=== PATIENT | female | born 1965 | race Caucasian/White ===

== ENCOUNTER 2017-11-07 12:34 | Observation (INO) | payer MEDICAID, OTHER ==
[2017-11-07 13:34] LABS: ABS Basophils 0 10^3/ul (0-0.2); ABS Eosinophils 0.2 10^3/ul (0-0.6); ABS Lymphocytes 1.7 10^3/ul (1.0-4.8); ABS Monocytes 0.5 10^3/ul (0-0.8); ABS Neutrophils 2.9 10^3/ul (1.5-7.7); ABS Nucleated RBC 0 10^3/ul; Eosinophil % 3.5 % (0-6); Hematocrit 47 % (35-47); Hemoglobin 15.7 g/dl (12.0-16.0); Lymphocyte % 31.7 % (25-47); Mean Corpuscular HGB Conc 33 g/dl (31-36); Mean Corpuscular Hemoglobin 29 pg (27-31); Mean Corpuscular Volume 88 fL (80-97); Mean Platelet Volume 9 um3 (7.4-10.4); Nucleated Red Blood Cells % 0; Platelet Count 202 10^3/ul (150-450); Red Blood Count 5.39 10^6/ul (4.0-5.4); Red Cell Distribution Width 21 % (10.5-15); White Blood Count 5.3 10^3/ul (3.5-10.8)
[2017-11-07 13:58] LABS: EGFR Non-African American 86.1 (>60)
--- NOTE | 2017-11-07 14:07 | ED ---
Allergic Reaction/Systemic - HPI Summary HPI Summary: Patient presents to the ED with CC of ingestion of 15 ground marina pits about 1 hour prior to arrival. She was unaware the cherries had pits and after looking online, she became scared and states she thought she would have to get her stomach pumped. She denies any symptoms. She is otherwise healthy, takes no medications and denies any heart history. Family is at bedside. Denies fevers , sweats or chills. - History of Current Complaint Chief Complaint: EDGeneral Time Seen by Provider: 11/07/17 13:14 Hx Obtained From: Patient Onset/Duration: Started hours ago Timing: Constant Severity Currently: None Pain Intensity: 0 Pain Scale Used: 0-10 Numeric - Related Hx Possible Reaction To: Environmental Exposure - Allergies/Home Medications Allergies/Adverse Reactions: Allergies Allergy/AdvReac Type Severity Reaction Status Date / Time No Known Allergies Allergy Verified 11/07/17 13:55 PMH/Surg Hx/FS Hx/Imm Hx Previously Healthy: Yes - Immunization History Hx Pertussis Vaccination: No Immunizations Up to Date: Unable to Obtain/Confirm Infectious Disease History: No Infectious Disease History: Denies: Traveled Outside the [place] in Last 30 Days - Social History Occupation: Employed Full-time Lives: With Family Alcohol Use: Daily Alcohol Amount: couple bottles of wine per week Hx Substance Use: No Substance Use Type: Reports: None Hx Tobacco Use: Yes Smoking Status (MU): Former Smoker Review of Systems Constitutional: Negative Negative: Fever, Chills, Fatigue Eyes: Negative Cardiovascular: Negative Respiratory: Negative Genitourinary: Negative Positive: no symptoms reported, see HPI Musculoskeletal: Negative Skin: Negative Neurological: Negative All Other Systems Reviewed And Are Negative: Yes Physical Exam Triage Information Reviewed: Yes Vital Signs On Initial Exam: Initial Vitals Temp Pulse Resp BP Pulse Ox 97.7 F 85 18 201/120 100 11/07/17 12:36 11/07/17 12:36 11/07/17 12:36 11/07/17 12:36 11/07/17 12:36 Vital Signs Reviewed: Yes Appearance: Positive: Well-Appearing, Well-Nourished Skin: Positive: Warm, Skin Color Reflects Adequate Perfusion Head/Face: Positive: Normal Head/Face Inspection Eyes: Positive: EOMI, KRISTOFER, Conjunctiva Clear Neck: Positive: Supple, Nontender, No Lymphadenopathy Respiratory/Lung Sounds: Positive: Clear to Auscultation, Breath Sounds Present Musculoskeletal: Positive: Normal, Strength/ROM Intact Neurological: Positive: Speech Normal Psychiatric: Positive: Normal, Affect/Mood Appropriate AVPU Assessment: Alert Diagnostics - Vital Signs Vital Signs Temp Pulse Resp BP Pulse Ox 11/07/17 12:36 97.7 F 85 18 201/120 100 - Laboratory Lab Results: Lab Results 11/07/17 11/07/17 11/07/17 Range/Units 13:23 13:23 13:23 WBC 5.3 (3.5-10.8) 10^3/ul RBC 5.39 (4.0-5.4) 10^6/ul Hgb 15.7 (12.0-16.0) g/dl Hct 47 (35-47) % MCV 88 (80-97) fL MCH 29 (27-31) pg MCHC 33 (31-36) g/dl RDW 21 H (10.5-15) % Plt Count 202 (150-450) 10^3/ul MPV 9 (7.4-10.4) um3 Neut % (Auto) 55.0 (38-83) % Lymph % (Auto) 31.7 (25-47) % [place] % (Auto) 9.0 (1-9) % Eos % (Auto) 3.5 (0-6) % Baso % (Auto) 0.8 (0-2) % Absolute Neuts (auto) 2.9 (1.5-7.7) 10^3/ul Absolute Lymphs (auto) 1.7 (1.0-4.8) 10^3/ul Absolute Monos (auto) 0.5 (0-0.8) 10^3/ul Absolute Eos (auto) 0.2 (0-0.6) 10^3/ul Absolute Basos (auto) 0 (0-0.2) 10^3/ul Absolute Nucleated RBC 0 10^3/ul Nucleated RBC % 0 Sodium 138 (133-145) mmol/L Potassium 4.4 (3.5-5.0) mmol/L Chloride 105 (101-111) mmol/L Carbon Dioxide 26 (22-32) mmol/L Anion Gap 7 (2-11) mmol/L BUN 18 (6-24) mg/dL Creatinine 0.71 (0.51-0.95) mg/dL Est GFR ( Amer) 110.7 (>60) Est GFR (Non-Af Amer) 86.1 (>60) BUN/Creatinine Ratio 25.4 H (8-20) Glucose 128 H (70-100) mg/dL Lactic Acid 1.2 (0.5-2.0) mmol/L Calcium 9.2 (8.6-10.3) mg/dL Total Bilirubin 0.40 (0.2-1.0) mg/dL AST 18 (13-39) U/L ALT 22 (7-52) U/L Alkaline Phosphatase 71 (34-104) U/L Total Protein 6.8 (6.4-8.9) g/dL Albumin 4.0 (3.2-5.2) g/dL Globulin 2.8 (2-4) g/dL Albumin/Globulin Ratio 1.4 (1-3) Result Diagrams: 11/07/17 13:23 11/07/17 13:23 Lab Statement: Any lab studies that have been ordered have been reviewed, and results considered in the medical decision making process. Allergic Reaction Course/Dx - Course Course Of Treatment: Discussed case with poison control who advised venous access, EKG and observation x 8 hours. She continues to deny any symptoms. Cyanide level, venous blood gas and other labs obtained - all WNL. Discussed treatment options with patient who agrees to admission. Spoke with Dr. Whitten at 1:50p who agrees to admit patient for observation x 6 hours (2 hours already since ingestion). She is resting comfortably and awaiting admission. BP noted to be high on arrival. Taken again 30 minutes later at provider arrival and rechecked again at 170/96. Awaiting cyanide level upon admission to obs. - Diagnoses Provider Diagnoses: Adverse food reaction Discharge - Discharge Plan Condition: Stable Disposition: ADMITTED TO [facility]
[2017-11-07] MEDS ORDERED: Acetaminophen TAB* 325 MG PO PRN (16:05)
[2017-11-07] MEDS ORDERED: NS 0.9% 1000 ML* 1,000 ML IV SCH (16:15)
[2017-11-07 20:10] VITALS: BP 154/101
--- NOTE | 2017-11-08 01:17 | HP ---
CC: Dr. Jarvis * HISTORY AND PHYSICAL: DATE OF ADMISSION: 11/07/17 PRIMARY CARE PROVIDER: Dr. Jarvsi. CHIEF COMPLAINT: Naidu pit ingestion. HISTORY OF PRESENT ILLNESS: Ms. Diaz is a 51-year-old female who has been in her usual state of health who presents to the emergency room after ingesting between what she estimates 12 to 20 ground naidu pits. The patient states that this morning she made her usual smoothie. 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 She states that she drank the entire smoothie, which contained anywhere between 12 to 20 cherries and when she got down to the bottom of the smoothie, she noted there were some hard brown pieces. At that point, she went to the freezer. She removed a naidu and cut into it and realized that she had not de-pitted the cherries. She then went on the Internet and looked up what would happen if you ate cherries, became concerned, tried to make herself vomit, which she was unable to do and then presented to the emergency room for evaluation. At this point, the patient states that she does have a slight headache. She states that ordinarily she does not get headaches. She also has been having some intermittent twinges of abdominal pain. When asked about flushing, she states that she is going through menopause and she has hot flashes about 4 times per hour and these have not seemed out of the ordinary recently. The patient has no other complaints. She has no shortness of breath or chest pain. PAST MEDICAL HISTORY: None. PAST SURGICAL HISTORY: None. MEDICATIONS: None. ALLERGIES: None. FAMILY HISTORY: Mom at the age of 48 of breast cancer. Dad's history is unknown. SOCIAL HISTORY: The patient is a nonsmoker. She does drink alcohol twice weekly. She works at a cafe. She is . Her is her healthcare proxy. REVIEW OF SYSTEMS: A complete 11-system review of systems is obtained. Pertinent positives and negatives are as per HPI and otherwise negative. PHYSICAL EXAMINATION GENERAL: The patient is a well-developed, middle aged male, sitting up in the bed, in no acute distress. VITAL SIGNS: Blood pressure 170/106, pulse 90, respirations 25, temp 97.7, O2 sat 96% on room air. HEENT: Pupils are equal. They are round. Extraocular muscles are intact. Oropharynx is clear. Oral mucosa is moist. There is no submandibular, cervical , or supraclavicular adenopathy. Thyroid is not enlarged. No thyroid nodules are noted. PULMONARY: Lungs are clear to auscultation bilaterally. CARDIAC: Normal S1 and S2. Regular rate and rhythm. I do not appreciate any murmurs. There is no lower extremity edema. ABDOMEN: Bowel sounds present. Abdomen is soft, nontender, nondistended. MUSCULOSKELETAL: There is no cyanosis or clubbing of the digits. There is full active range of motion of all 4 extremities. NEURO: Cranial nerves II through XII are grossly intact. Sensation is intact to light touch throughout. Strength is 5/5 and symmetric in both upper and lower extremities bilaterally. SKIN: Warm and dry. There is no flushing noted. PSYCH: The patient is alert. She is oriented x3. Affect appears appropriate. LABORATORY DATA/DIAGNOSTIC STUDIES: WBC 5.3, hemoglobin 15.7, hematocrit 47, and platelets 202. Sodium 138, potassium 4.4, chloride 105, CO2 26, BUN 18, creatinine 0.71, glucose 128, lactic acid 1.2, calcium 9.2, bilirubin 0.4, AST 18, ALT 22, alk phos 71, albumin 4.0. VBG, pH 7.41/41/45. EKG reveals normal sinus rhythm with an occasional PVC and a right bundle branch block, prolonged QTc interval of 500 (the patient has no prior EKG to compare to). ASSESSMENT AND PLAN: Ms. Diaz is a 51-year-old female who unintentionally ingested between 12 to 20 crushed naidu pits earlier today while drinking a smoothie who now presents to the emergency room out of concern for cyanide poisoning and is admitted for observation. 1. Naidu pit ingestion with potential for cyanide poisoning. At this point, Poison Control has recommended observation for 8 hours post ingestion. Eight- hour observation will end at the hospital around 0945 p.m. this evening. I am concerned regarding the patient's hypertension, her complaint of headache and abdominal pain as these are all signs of cyanide poisoning. I have placed the repeat call to Poison Control to discuss whether or not hydroxy cobalamin and sodium thiosulfate should be administered at this point despite the paucity of symptoms. I am awaiting a return call back from them. For now, the patient will be monitored on telemetry. She has been asked to alert the nurse if she has any persistent flushing, worsened headache, shortness of breath or any other symptoms out of the ordinary. The patient if stable later this evening could be discharged home. 2. Hypertension. The patient's blood pressure was markedly elevated on presentation to the emergency room. Initially it was felt that this was likely related to anxiety and being nervous secondary to the ingestion; however, her blood pressures have remained elevated. The patient states that at home for the last several weeks; however, she has been having blood pressures with systolics in the 180s to 200 range. She discussed this with her primary and was attributed to her being menopausal. I informed the patient that I would treat the blood pressure that high as it puts her at risk for stroke. I recommended starting amlodipine 5 mg daily, which generally is well tolerated; however, the patient does not wish to start this at this time. She states that she wishes to go home and work on diet and exercise to try to bring her blood pressure down in that way. We will monitor her blood pressure while she is under observation status and if it becomes anymore markedly elevated, I will try to convince the patient to consider initiation of low dose antihypertensive. 3. DVT prophylaxis. According to the Adult Thrombosis Prophylaxis Risk Factor Assessment Guide, the patient has a total risk factor score of 2 making her moderate risk; however, as she is potentially leaving this evening after her 8- hour observation, ambulation alone will be utilized this DVT prophylaxis. 4. Code status is full. TIME SPENT: 65 minutes were spent admitting this patient. [id number]/[facility] #: [id number] LAKISHA
== END 2017-11-07 22:15 | disposition home or self-care (01) ==
LOC: ED 12:34 → MEDTELE 13:48
PROVIDERS: ADMIT Hospitalist; ATTEND Hospitalist
DX: T78.1XXA Other adverse food reactions, not elsewhere classified, initial encounter (principal); X58.XXXA Exposure to other specified factors, initial encounter
CPT/HCPCS: 36415; 80053; 82600; 82803; 83605; 85025; 93005; 96360; 99283; G0378